=== PATIENT | female | born 1975 | race Caucasian/White ===

== ENCOUNTER 2019-02-01 18:34 | Emergency (ER) | payer BC, OTHER ==
[~2019-02-01] VITALS: Ht 175.3 cm; Wt 99.8 kg
[~2019-02-01 18:34] MED LIST: AMOCLA875 PO; BENTYL20 MG PO; BUPR100 PO; BUSP5 PO; CHOL10002; CITA20 PO; Celexa40 MG PO; ESCI20; FAMO20 PO; GUAI600T33 PO; HYDACE5 PO; HYDPAM25 PO; LORA1 PO; MELO7.5 PO; METF500 PO; Naprosyn500 MG PO; OLOP.1OPSO; PHENTRAMINE PO; PRED20 PO; PROM25 PO; PROM25S PR; Percocet 10-321 EACH PO; Percocet 5-3251 EACH PO; RXLORA1 PO; VENL75ER PO; VITAMIN D PO; Valium5 MG PO; ZOLP10 PO
[2019-02-01 19:35] LABS: BASOPHILS ABSOLUTE AUTO 0.05 K/mm3 (0.00-0.23); BASOPHILS PERCENT AUTO 0 % (0-2); EOSINOPHILS ABSOLUTE AUTO 0.12 K/mm3 (0.00-0.68); EOSINOPHILS PERCENT AUTO 1 % (0-6); Hemoglobin 15.2 g/dL (11.5-16.0); IMMATURE GRAN ABSOLUTE AUTO 0.05 K/mm3 (0.00-0.10); IMMATURE GRAN PERCENT AUTO 0 % (0-1); LYMPHOCYTES ABSOLUTE AUTO 1.91 K/mm3 (0.84-5.20); LYMPHOCYTES PERCENT AUTO 16 % (21-46); MONOCYTES ABSOLUTE AUTO 0.46 K/mm3 (0.16-1.47); MONOCYTES PERCENT AUTO 4 % (4-13); Mean Corpuscular HGB 30.6 pg (26.0-34.0); Mean Corpuscular HGB Conc 32.3 g/dL (31.5-36.5); Mean Corpuscular Volume 95 fL (80-100); Mean Platelet Volume 9.7 fL (9.1-12.4); NEUTROPHILS ABSOLUTE AUTO 9.57 K/mm3 (1.96-9.15); NEUTROPHILS PERCENT AUTO 79 % (41-73); Platelet Count 351 K/mm3 (150-400); RDW Coefficient Variation 12.9 % (11.7-14.2); Red Blood Cell Count 4.97 M/mm3 (3.80-5.20); White Blood Cell Count 12.16 K/mm3 (4.00-11.30)
[2019-02-01 19:49] LABS: Alanine Aminotransfer (ALT/SGP 39 U/L (12-78); Albumin/Globulin Ratio 0.9 (0.8-1.8); Alk Phos 106 U/L (50-136); Anion Gap 6 mmol/L (6-16); Aspartate Aminotrans (AST/SGOT 16 U/L (12-37); Bilirubin, Total 0.3 mg/dL (0.1-1.0); Blood Urea Nitrogen 16 mg/dL (8-24); Bun/Creatinine Ratio 25.1 (12.0-20.0); CO2, Blood 22 mmol/L (21-32); Calcium, Blood 8.7 mg/dL (8.5-10.1); Chloride, Blood 110 mmol/L (98-108); Creatinine, Blood 0.64 mg/dL (0.40-1.00); Globulin, Blood 4.4 g/dL (2.2-4.0); Glomerular Filtration Rate >60 (60-); Glucose, Blood 107 mg/dL (70-99); Potassium, Blood 4.1 mmol/L (3.5-5.5); Sodium, Blood 138 mmol/L (136-145); Total Protein, Blood 8.4 g/dL (6.4-8.2)
[2019-02-01 21:03] LABS: Source, Urine Clean Catch
[2019-02-01 21:07] LABS: Bilirubin, Urine Neg (Neg); Blood, Urine Neg (Neg); Glucose Qualitative, Urine Neg (Neg); Ketones, Urine Neg (Neg); Leukocyte Esterase, Urine 1+ (Neg); Nitrite, Urine Neg (Neg); Protein, Urine 1+ (Neg); Specific Gravity, Urine 1.025 (1.003-1.022); Urobilinogen, Urine NORM (Normal)
[2019-02-01 21:08] LABS: Appearance, Urine Clear (Clear); Color, Urine Yellow (P-Yellow)
[2019-02-01 21:16] LABS: Bacteria Mod /hpf; Mucus Light (0-Heavy); Red Blood Cells, Urine Not Seen /hpf (0-2); Squamous Epithelial Cells Few /hpf (Few); White Blood Cells, Urine 0-2 /hpf (0-5)
[2019-02-01] MEDS ORDERED: MELATONIN5 M1 PO (21:44)
[2019-02-01] MEDS ORDERED: DIPH50 PO (21:44)
[2019-02-01] MEDS ORDERED: Diethylpropion75 MG PO (21:47)
[2019-02-02] MEDS ORDERED: ONDA4ODT MM (00:52)
== END 2019-02-02 01:13 | disposition home or self-care (01) ==
LOC: ER 18:34
PROVIDERS: Physician Assistant
DX: N83.202 Unspecified ovarian cyst, left side (principal); N83.201 Unspecified ovarian cyst, right side; Z88.7 Allergy status to serum and vaccine; Z88.5 Allergy status to narcotic agent; Z88.8 Allergy status to other drugs, medicaments and biological substances; Z79.899 Other long term (current) drug therapy; Z79.84 Long term (current) use of oral hypoglycemic drugs; F32.9 Major depressive disorder, single episode, unspecified; G43.909 Migraine, unspecified, not intractable, without status migrainosus
CPT/HCPCS: 36415; 74177; 80053; 81001; 81025; 83690; 85025; 87086; 96374-59; 96375; 96376; 99284-25; J1200; J2270; J2405; J2550; Q9967

== ENCOUNTER 2019-08-08 09:18 | Day surgery (SDC) | payer BC, OTHER ==
[~2019-08-08] VITALS: Ht 170.2 cm; Wt 230.4 kg
[~2019-08-08 09:18] MED LIST changes: +DIPH50 PO; +Diethylpropion75 MG PO; +MELATONIN5 M1 PO; +ONDA4ODT MM
--- NOTE | 2019-08-08 09:57 | NUR ---
08/08/19 0957 Kristi Starkey 2 UNSECCESSLUL IV 1 IN RH 1 RH AC VALVE 1 SUUCCESSFUL IV IN RFA BY JESUS PT TOW
--- NOTE | 2019-08-08 11:20 | NUR ---
08/08/19 1120 Dudley Noel PT STATES SHE IS FEELING NAUSEOUS. DRY HEAVING BUT NOTHING COMING UP. PT TAKING SMALL SIPS 7UP. MEDICATED PER ORDER, SEE VITALS FOR DOSING AND TIMES.
== END 2019-08-08 11:33 | disposition home or self-care (01) ==
LOC: ORSCSDS 09:18
PROVIDERS: Internal Medicine Gastroenterology
PROC: 0DBP8ZX Excision of Rectum, Via Natural or Artificial Opening Endoscopic, Diagnostic (ICD-10-PCS; principal; 2019-08-08 10:30)
PROC: 0DBK8ZX Excision of Ascending Colon, Via Natural or Artificial Opening Endoscopic, Diagnostic (ICD-10-PCS; principal; 2019-08-08 10:30)
PROC: 0DBN8ZX Excision of Sigmoid Colon, Via Natural or Artificial Opening Endoscopic, Diagnostic (ICD-10-PCS; principal; 2019-08-08 10:30)
DX: Z12.11 Encounter for screening for malignant neoplasm of colon (principal); Z86.010 Personal history of colon polyps; Z80.0 Family history of malignant neoplasm of digestive organs; D12.5 Benign neoplasm of sigmoid colon; D12.2 Benign neoplasm of ascending colon; K62.1 Rectal polyp; Z79.899 Other long term (current) drug therapy; E66.01 Morbid (severe) obesity due to excess calories
CPT/HCPCS: 88305; J2405; J2550; J2704; J7120

== ENCOUNTER 2020-11-28 08:07 | Day surgery (SDC) | payer OTHER ==
[2021-02-26] MEDS ORDERED: METF500 (18:45)
[2021-02-26] MEDS ORDERED: TRANSDERM-SCOP1 EAC1 TD (18:45)
[2021-02-26] MEDS ORDERED: OXYC5 (18:46)
[2021-02-26] MEDS ORDERED: Percocet 5-3251 EACH PO (20:54)
[2021-02-26] MEDS ORDERED: PROM25 PO (20:54)
== END 2020-11-28 23:18 | disposition home or self-care (01) ==
LOC: MOI US 08:07 → MOI MAM 08:45 → MOI US 23:18
DX: C50.212 Malignant neoplasm of upper-inner quadrant of left female breast (principal); Z17.0 Estrogen receptor positive status [ER+]
CPT/HCPCS: 19083; 77065; 88305; 88342; 88360; A4648; G0279

== ENCOUNTER → 2021-05-20 | Outpatient (CLI) | payer OTHER | END | disposition home or self-care (01) | LOC: LAB 10:01 | DX: C50.919 Malignant neoplasm of unspecified site of unspecified female breast (principal) ==

== ENCOUNTER 2021-05-24 17:37 | Emergency (ER) | payer OTHER ==
[~2021-05-24] VITALS: Ht 170.2 cm; Wt 99.8 kg
[~2021-05-24 17:37] MED LIST changes: +METF500; +OXYC5; +TRANSDERM-SCOP1 EAC1 TD
[2021-05-24] MEDS ORDERED: ONDA4ODT (17:51)
[2021-05-24] MEDS ORDERED: DIPATR (17:51)
[2021-05-24] MEDS ORDERED: VENL150ER (17:51)
[2021-05-24 18:40] LABS: Hematocrit 37.5 % (33.0-51.0); Hemoglobin 12.3 g/dL (11.5-16.0); Mean Corpuscular HGB 32.5 pg (26.0-34.0); Mean Corpuscular HGB Conc 32.8 g/dL (31.5-36.5); Mean Corpuscular Volume 99 fL (80-100); NRBC ABSOLUTE 0.03 K/mm3 (0.00-0.02); NRBC Auto 0.2 /100 WBC (0.0-0.2); Platelet Count 165 K/mm3 (150-400); RDW Coefficient Variation 16.8 % (11.7-14.2); RDW Standard Deviation 60.5 fL (35.1-46.3); Red Blood Cell Count 3.78 M/mm3 (3.80-5.20); White Blood Cell Count 13.02 K/mm3 (4.00-11.30)
[2021-05-24 19:02] LABS: Alanine Aminotransfer (ALT/SGP 75 U/L (12-78); Albumin, Blood 3.1 g/dL (3.4-5.0); Alk Phos 164 U/L (50-136); Anion Gap 5 mmol/L (6-16); Aspartate Aminotrans (AST/SGOT 44 U/L (12-37); Bilirubin, Total 0.3 mg/dL (0.1-1.0); Blood Urea Nitrogen 10 mg/dL (8-24); Bun/Creatinine Ratio 10.8 (12.0-20.0); CO2, Blood 25 mmol/L (21-32); Calcium, Blood 8.5 mg/dL (8.5-10.1); Chloride, Blood 110 mmol/L (98-108); Creatinine, Blood 0.92 mg/dL (0.40-1.00); Globulin, Blood 3.2 g/dL (2.2-4.0); Glomerular Filtration Rate >60 (60-); Glucose, Blood 140 mg/dL (70-99); Magnesium, Blood 1.7 mg/dL (1.6-2.4); Potassium, Blood 3.4 mmol/L (3.5-5.5); Sodium, Blood 140 mmol/L (136-145); Total Protein, Blood 6.3 g/dL (6.4-8.2); Troponin I <0.015 ng/mL (0.000-0.040)
[2021-05-24 19:03] LABS: BAND PERCENT MAN 4 % (0-8); BASOPHILS PERCENT MAN 0 % (0-2); EOSINOPHILS PERCENT MAN 0 % (0-6); LYMPHOCYTES PERCENT MAN 10 % (21-46); MONOCYTES ABSOLUTE MAN 0.91 K/mm3 (0.16-1.47); MONOCYTES PERCENT MAN 7 % (4-13); SEG NEUTROPHILS PERCENT MAN 79 % (41-73); TOTAL CELLS COUNTED 100
[2021-05-24] MEDS ORDERED: ONDA4ODT MM (20:14)
== END 2021-05-24 21:25 | disposition home or self-care (01) ==
LOC: ER 17:37
PROVIDERS: Student in an Organized Health Care Education/Training Program
DX: E86.0 Dehydration (principal); E87.6 Hypokalemia; R11.2 Nausea with vomiting, unspecified; T45.1X5A Adverse effect of antineoplastic and immunosuppressive drugs, initial encounter; Z79.899 Other long term (current) drug therapy; Z88.4 Allergy status to anesthetic agent; Z88.8 Allergy status to other drugs, medicaments and biological substances
CPT/HCPCS: 71045; 80053; 83735; 84484; 85025; 93005; 93010; 96361; 96365; 96375; 99285-25; A9270; J2405; J3475; J7120

== ENCOUNTER → 2021-05-29 | Outpatient (CLI) | payer OTHER ==
[~2021-05-29] MED LIST changes: +DIPATR; +ONDA4ODT; +VENL150ER
== END | disposition home or self-care (01) ==
LOC: LAB SHORT 15:40 → LAB 15:40
DX: L03.90 Cellulitis, unspecified (principal)
CPT/HCPCS: 87070; 87075; 87077; 87147; 87186; 87205

== ENCOUNTER → 2023-04-10 | Outpatient (CLI) | payer SELFPAY | LOC: LAB SHORT 11:36 → LAB 11:36 | DX: R30.0 Dysuria (principal) | CPT/HCPCS: 87077; 87086; 87186 ==

== ENCOUNTER 2024-08-23 08:37 | Day surgery (SDC) | payer BC ==
[~2024-08-23] VITALS: Ht 170.2 cm; Wt 85.2 kg
[2024-08-23] MEDS ORDERED: Amphetamine Sal20 MG PO (08:59)
[2024-08-23] MEDS ORDERED: DEXLANSOPRAZOLE60 MG PO (09:00)
[2024-08-23] MEDS ORDERED: TRAZ50 PO (09:00)
[2024-08-23] MEDS ORDERED: FAMO20 PO (09:00)
[2024-08-23] MEDS ORDERED: Lactated Ringer's 1,000 ML IV ONE (09:06)
--- NOTE | 2024-08-23 09:06 | NUR ---
08/23/24 0906 Octavia Vigil REPORT GIVEN TO DR. MARROQUIN, VERSED DOES NOT WORK FOR THE PT AND FENTANYL GIVES HER NAUSEA AND RASH. DOSE NOT WANT EITHER MEDICATION.
[2024-08-23] MEDS ORDERED: Dexmedetomidine HCL 200 MCG / 2 ML ONE (09:09)
[2024-08-23] MEDS ORDERED: Scopolamine Hydrobromide Patch ONE (09:15)
--- NOTE | 2024-08-23 09:37 | NUR ---
08/23/24 0937 Luisa Arenas 0.15ML OF EPI (1MG/ML) ADDED TO 0.5% BUPIVACAINE TO MAKE BUPIVACAIN 0.5% WITH EPI 1:200,000 ON FIELD.
[2024-08-23] MEDS ORDERED: Bupivacaine 0.5% W/EPI 1:200000 SDV 30ML INJ ONE (09:39)
[2024-08-23] MEDS ORDERED: Rocuronium Bromide 10 MG/ML 5ML Injection IV ONE ×2 (09:44→10:35)
[2024-08-23] MEDS ORDERED: propofoL 20 ML IV ONE (09:44)
[2024-08-23] MEDS ORDERED: FentaNYL Citrate 50 MCG/ML 2 ML Injection ONE (09:44)
[2024-08-23] MEDS ORDERED: Dexamethasone Sod Phos 10 MG/ML 1ML VIAL ONE (09:44)
[2024-08-23] MEDS ORDERED: Ondansetron HCl 2 MG / ML 2ML Vial ONE (09:44)
[2024-08-23] MEDS ORDERED: Ketorolac Tromethamine 30mg Vial ONE (09:44)
[2024-08-23] MEDS ORDERED: Sugammadex Sodium 200 MG/2ML SDV (100 MG/ML) ONE (09:44)
[2024-08-23] MEDS ORDERED: HYDROmorphone HCl/Pf 1MG SYR ONE (11:41)
[2024-08-23 12:03] VITALS: BP 115/69
--- NOTE | 2024-08-23 12:12 | NUR ---
08/23/24 1212 Marilin Hammer Pt still having sharp pain, gave another 0.5 MG of Dilaudid for a total of 1 MG
[2024-08-23] MEDS ORDERED: Ibuprofen 400 MG Tab ONE (12:21)
== END 2024-08-23 12:38 | disposition home or self-care (01) ==
LOC: ORSCSDS 08:37
PROVIDERS: Obstetrics & Gynecology
PROC: 0UT24ZZ Resection of Bilateral Ovaries, Percutaneous Endoscopic Approach (ICD-10-PCS; principal; 2024-08-23 09:00)
DX: C50.919 Malignant neoplasm of unspecified site of unspecified female breast (principal); N73.6 Female pelvic peritoneal adhesions (postinfective); J45.909 Unspecified asthma, uncomplicated; K21.9 Gastro-esophageal reflux disease without esophagitis; R11.2 Nausea with vomiting, unspecified; F41.9 Anxiety disorder, unspecified; F32.A Depression, unspecified; Z79.899 Other long term (current) drug therapy
CPT/HCPCS: 88302; A9270; J1100; J1171; J1885; J2405; J2704; J3010

== ENCOUNTER 2025-06-24 07:02 | Day surgery (SDC) | payer OTHER ==
[~2025-06-24] VITALS: Ht 170.2 cm; Wt 86.2 kg
[2025-06-24] VITALS (16 sets, daily range): BP systolic 100–141; BP diastolic 53–108
[~2025-06-24 07:02] MED LIST changes: +Amphetamine Sal20 MG PO; +DEXLANSOPRAZOLE60 MG PO; +TRAZ50 PO; +ZYRTEC10 M2 PO
[2025-06-24] MEDS ORDERED: MONT10T PO (07:45)
--- NOTE | 2025-06-24 07:45 | NUR ---
History, Chart, Medications and Allergies reviewed before start of procedure. Ambulatory in Day Surgery. Patient confirms NPO status and agrees with scheduled surgery. Patient States Post-Procedure ride home has been arranged.
--- NOTE | 2025-06-24 08:23 | NUR ---
06/24/25 0883 Samy Saldaña CONFIRMED AND REVIEWED H&P, MEDCICATIONS, ALLERGIES, MEDICAL HISTORY, RESPIRATORY HISTORY, VITAL SIGNS, 3-LEAD EKG, CONSENTS, AND PHYSICIAN ORDERS. PATIENT CONFIRMS NPO STATUS AND AGREES WITH SCHEDULED PROCEDURE. MONITOR INTACT WITH CONTINUOUS PULSE OXIMETRY, CAPNOGRAPHY, 3-LEAD EKG, INTERMITTENT BP. SUPPLEMENTAL O2 TO BE TITRATED THROUGHOUT PROCEDURE TO MAINTAIN O2 SATURATION ABOVE 90%. PATIENT DETERMINED TO BE ASA APPROPRIATE FOR PROPOFOL SEDATION PRIOR TO START OF PROCEDURE BY DR. ANDREWS
--- NOTE | 2025-06-24 08:47 | NUR ---
Patient up to Ambulate independently. Gait steady. Discharge instructions reviewed with patient. Patient verbalizes understanding. Copy given to patient to take home. Discharged via wheelchair to private car for ride home.
== END 2025-06-24 23:38 | disposition home or self-care (01) ==
LOC: ORSCMMR 07:02 → EDSTATUS 07:45 → ORSCMMR 07:45 → ORD 07:45 → ORSCMMR 23:38
PROVIDERS: Internal Medicine Gastroenterology
PROC: 0DBH8ZX Excision of Cecum, Via Natural or Artificial Opening Endoscopic, Diagnostic (ICD-10-PCS; principal; 2025-06-24 07:45)
DX: R10.84 Generalized abdominal pain (principal); Z86.0101 Personal history of adenomatous and serrated colon polyps; K63.5 Polyp of colon; K21.9 Gastro-esophageal reflux disease without esophagitis; R11.0 Nausea; R14.0 Abdominal distension (gaseous); Z85.3 Personal history of malignant neoplasm of breast; Z79.899 Other long term (current) drug therapy; F17.290 Nicotine dependence, other tobacco product, uncomplicated; F32.A Depression, unspecified
CPT/HCPCS: 88305; J2704; J7120